=== PATIENT | male | born 1975 | race Caucasian/White ===

== ENCOUNTER 2017-08-14 13:59 | Emergency (ER) | payer SELFPAY ==
--- NOTE | 2017-08-14 17:39 | MRI ---
MRI LUMBAR SPINE WITHOUT IV CONTRAST: Date: 08/14/17 HISTORY: Left-sided lower back pain radiating to midline. Difficulty urinating. Injury occurred post lifting 1 week ago. COMPARISON: 03/17/10. FINDINGS: Retroperitoneal structures demonstrate a normal MRI appearance. Conus medullaris is normal in appearance and terminates at the L1-2 level. There are mild end plate degenerative changes at the L4-5 and L5-S1 levels. Normal signal intensity i s otherwise demonstrated in the bone marrow. T11-12 Level: There is a mild broad based disc bulge with central disc protrusion which does narrow the ventral sub arachnoid space and encroaches on the anterior aspect of the spinal cord. Neural foramina are patent. T12-L1 Level: There is minimal disc bulge without significant narrowing of the central spinal canal. The neural for anibal are patent. There is a small, subcentimeter, increased T2-weighted signal intensity structure i n the right neural foramen, probably related to a small, dilated nerve root sleeve. L1-2 Level: There is no significant disc bulge or disc herniation. Central spinal canal and neural foramina are p atent. L2-3 Level: There is no disc bulge or disc herniation. Central spinal canal and neural foramina are patent. L3-4 Level: There is no significant disc bulge or disc herniation. Central spinal canal and neural foramina are p atent. Mild facet degenerative change is present. L4-5 Level: As noted on prior exam, there is loss of intervertebral disc height. Increased T2-weighted signal int ensity in the L4-5 intervertebral disc is likely related to prominent degenerative changes at this le andrew. There is a broad based disc osteophyte complex also noted on the prior exam. There is epidural f at posterior to the thecal sac and a combination of epidural fat with the disc bulge does result in m oderate narrowing of the central spinal canal, and there is also narrowing of each lateral recess due to the disc osteophyte complex also noted on prior exam. There is mild to moderate right and mild le ft-sided neural foraminal narrowing, and the right-sided neural foraminal narrowing has progressed fr om prior exam. L5-S1 Level: There is broad based disc osteophyte complex with loss of intervertebral disc height. Small central d isc protrusion is also present. There is slight mass effect on the anterior aspect of the thecal sac with mild bilateral neural foraminal narrowing which approaches moderate in severity on the right. IMPRESSION: Degenerative changes in the lumbar spine, greatest at the L4-5 and L5-S1 levels. The greatest degree of narrowing of the central spinal canal is at the L4-5 level where there is moderate narrowing of th e central spinal canal related to the disc osteophyte complex and central disc protrusion with increa sed epidural fat posterior to the thecal sac. There is also narrowing of the lateral recesses at this level. POS: AJAY
== END 2017-08-14 16:56 | disposition home or self-care (01) ==
LOC: ERS 13:59
DX: M54.5 Low back pain (principal); R33.9 Retention of urine, unspecified; F17.210 Nicotine dependence, cigarettes, uncomplicated; Z79.1 Long term (current) use of non-steroidal anti-inflammatories (NSAID)
CPT/HCPCS: 72148

== ENCOUNTER 2020-01-30 08:31 | Outpatient (CLI) | payer BC ==
--- NOTE | 2020-01-30 14:03 | NM ---
NUCLEAR MEDICINE BRAIN TOMOGRAPHIC IMAGING HISTORY: Tremors COMPARISON: None TECHNIQUE: A nuclear medicine tomographic scan was performed using 4.3 mCi of I-123 Ioflupane. FINDINGS: There is comma shaped uptake of the radiopharmaceutical by the basal ganglia. IMPRESSION: No significant abnormal basal ganglia accumulation of the radiopharmaceutical.
== END 2020-01-30 08:32 | disposition home or self-care (01) ==
LOC: NM 08:31
PROVIDERS: ATTEND Nurse Practitioner Acute Care
DX: R25.1 Tremor, unspecified (principal)
CPT/HCPCS: 78803; A9584

== ENCOUNTER 2024-12-04 14:32 | Emergency (ER) | payer SELFPAY ==
[2024-12-04] MEDS ORDERED: Ketorolac Tromethamine 30 MG (1 mL) VIAL ONE (16:49)
[2024-12-04 17:01] LABS: Bacteria/HPF None Seen HPF (None Seen); CAUTI Indications for Culture Dysuria,urgency,freq; Glucose, Urine (Dipstick) Normal (Negative); Leukocyte Negative Leu/uL (Negative); Protein, Urine (Dipstick) Negative (Neg-Trace); RBC/HPF 0-3 HPF (0-3); Specific Gravity, Urine 1.012 (1.002-1.036); WBC/HPF 0-3 HPF (0-3)
[2024-12-04 17:05] LABS: Urine Culture Reflex No No
== END 2024-12-04 17:26 | disposition home or self-care (01) ==
LOC: ERS 14:32
DX: U07.1 COVID-19 (principal); F17.200 Nicotine dependence, unspecified, uncomplicated
CPT/HCPCS: 81001; 87428; 96372; 99283; J1885